=== PATIENT | male | born 1975 | race Caucasian/White ===

== ENCOUNTER → 2024-12-31 08:54 | Outpatient (REF) | payer OTHER, SELFPAY | LOC: HWRAD 08:54 | PROVIDERS: ATTENDING PHYSICIAN Nurse Practitioner Family; FAMILY PHYSICIAN Family Medicine | DX: R10.9 Unspecified abdominal pain (principal) | CPT/HCPCS: 74176 ==

== ENCOUNTER → 2025-02-28 06:37 | Outpatient (REF) | payer OTHER, SELFPAY | LOC: MRI 3T 06:37 | PROVIDERS: ATTENDING PHYSICIAN Physician Assistant Surgical; FAMILY PHYSICIAN Family Medicine | DX: M25.512 Pain in left shoulder (principal); M25.312 Other instability, left shoulder | CPT/HCPCS: 73221 ==

== ENCOUNTER 2025-06-29 00:12 | Emergency (ER) | payer OTHER, SELFPAY ==
[2025-06-29 00:19] VITALS: BP 143/98
--- NOTE | 2025-06-29 03:11 | ED.GENMED ---
History of Present Illness
General
Chief Complaint: Visual Problem
Source: patient
Exam Limitations: none
Time Seen by Provider: 06/29/25 02:42
Nursing documentation reviewed up to this point in time: agreed with
History of Present Illness
History of Present Illness:
Note:
CHIEF COMPLAINT(S)
Visual disturbances involving light sensations in the right eye.
HISTORY OF PRESENT ILLNESS
The patient is a 49-year-old male who presented with new-onset visual disturbances described as 'blowing sort of light' appearing in the peripheral vision of the right eye. These symptoms began around 9 oclock this morning and seem to follow the
curvature of the cornea. The sensation is less prominent currently but raised concern for possible retinal issues. The patient experienced a particularly stressful day, involving physical exertion while assisting his father in caring for his mother,
who has Alzheimers disease, and is 108 pounds. This situation was compounded by family responsibilities, including caring for two children. The patient mentioned stress as a possible trigger for the symptoms. The patient has no known history of
diabetes or eye problems, although there has been a gradual worsening of vision with age.
SOCIAL DETERMINANTS AFFECTING HEALTH
The patient reported significant stress due to family responsibilities, including caregiving for a parent with Alzheimers disease and managing household duties with two children.
PLAN
1. Measure intraocular pressure.
2. Perform an ocular ultrasound to assess for any structural issues, such as a scratch or other abnormalities.
3. Possible referral to an tire and tube repairer based on findings.
DIFFERENTIAL DIAGNOSIS
The Differential Diagnosis includes, in no particular order and is not limited to:
1. Retinal detachment
2. Vitreous detachment
3. Ocular migraine
4. Stress-induced visual disturbances
5. Hypertensive retinopathy
6. Age-related macular degeneration
7. Glaucoma
8. Corneal abrasion
9. Diabetic retinopathy (despite no diabetes history, considered due to visual changes)
10. Optic neuritis
Disposition:
SUMMARY OF ENCOUNTER
The patient, a 49-year-old male, presented to the emergency department with transient flashes of light in his left eye. Upon evaluation, symptoms had resolved. A fluorescein exam was performed, which showed no corneal abrasion. Tonometry readings
for the left eye were 12, 14, and 14. A bedside hdgvv-bl-vddl ultrasound, performed by me, indicated no obvious retinal detachment. The patient has an tire and tube repairer and will follow up accordingly.
PLAN
1. Recommend follow-up with the patients tire and tube repairer to ensure continued monitoring and management of the visual disturbances.
2. Monitor for any recurrence of symptoms or changes in vision that may necessitate further evaluation.
INDEPENDENT REVIEW OF LABS AND INTERPRETATION OF TESTS
- My independent interpretation of the fluorescein exam showed no corneal abrasion.
- My independent interpretation of the mgpnl-nx-bulp ultrasound indicated no obvious retinal detachment.
PATIENT EDUCATION AND COUNSELING
The patient was informed about the findings of the examination, the benign nature of current symptoms, and reassured regarding the absence of corneal abrasion or retinal detachment. He was advised to monitor for any recurrence of symptoms or changes
in vision and follow up with his tire and tube repairer.
MEDICAL DECISION MAKING
- Number and Complexity of Problems Addressed: Chronic conditions affecting care include past visual disturbances and potential eye health issues.
Differential Diagnosis includes:
- Retinal detachment
- Vitreous detachment
- Ocular migraine
- Stress-induced visual disturbances
- Hypertensive retinopathy
- Age-related macular degeneration
- Glaucoma
- Corneal abrasion
- Diabetic retinopathy
- Optic neuritis
- Data:
Category 1: The following tests were independently interpreted: fluorescein exam and shwnp-qj-lyad ultrasound.
- Risk:
Consideration of Admission/Observation: Escalation of care including admission/observation was considered given the complexity and risk of the patients presenting complaint. However, ultimately, the patient is safe for outpatient management with
close follow-up. Reasoning: Work-up was reassuring, did not reveal any acute life/organ-threatening processes, patients symptoms were well-controlled upon reevaluation, reexamination was reassuring, vitals were stable, and the patient is agreeable
with discharge and reliable for follow-up. Care significantly affected by Social Determinants of Health due to family responsibilities and stress.
DIAGNOSIS
1. Ocular migraine (ICD-10: G43.B0)
2. Visual disturbance, unspecified (ICD-10: H53.9)
Phy Exam
Physical Exam
Physical Exam:
.
Course
Orders/Labs/Results
Orders:
Orders
06/29/25 03:08
Fluorescein Sodium [Ful-Hannah] 3 mg .ROUTE .STK-MED ONE
Tetracaine HCl [Tetracaine 0.5% Ophthalmic Solution] 1 drop .ROUTE .STK-MED ONE
Vital Signs
Initial and Last Documented VS:
Initial Vital Signs
Temp Pulse Resp BP Pulse Ox
97.4 F 93 20 143/98 100
06/29/25 00:19 06/29/25 00:19 06/29/25 00:19 06/29/25 00:19 06/29/25 00:19
Last Documented Vital Signs
Temp Pulse Resp BP Pulse Ox
97.4 F 93 20 143/98 100
06/29/25 00:19 06/29/25 00:19 06/29/25 00:19 06/29/25 00:19 06/29/25 03:14
*Radiology
Radiology exam reviewed: other (Rbaye-uh-zaow ultrasound of the left orbit shows no obvious retinal detachment.)
*Pulse Oximetry
SaO2: 100
Oxygen Mode of Delivery: Room air
Patient hypoxic: no
*Critical Care Note
Total Time (30-74mins, 75-104mins- exclusive of procedures): Not Applicable
ED Attending Note
-
Portions of this chart may have been created with voice recognition software.� Occasional wrong word or��sound alike� substitutions may have occurred due to the inherent limitations of voice recognition software.
Discharge Plan
Departure
Patient Disposition: Home (Routine Discharge)
Date of Disposition: 06/29/25
Time of Disposition: 03:12
Patient with high blood pressure during this ER visit?: Yes
Discharge Problem:
Visual disturbance
Instructions: Floaters in the Eye
Referrals:
Jericho England MD [Active, Ophthalmology]
Michael Lopez DO [Family Provider, Family Practice]
Activity Restrictions/Additional Instructions:
Thank You for choosing [facility].
It was a pleasure meeting you and taking part in your care. We hope for your continued healing and wellness.
Please read discharge instructions in their entirety. However, they are for general education and may not describe your exact diagnosis at discharge. Information on your ER visit and medical conditions were discussed with you along with appropriate
follow up information...
If indicated, please take your medications as instructed and indicated on discharge paperwork.
Please schedule a follow up appointment as directed. Call to schedule an appointment
Please return to the emergency department with ANY change in, persisting, or worsening of symptoms. If any of your symptoms do not improve, or persist, or become more severe within 6-12 hours, please return to the emergency department for further
care.
Please return to the emergency department if you develop a headache, neck pain/stiffness, fever greater than 100.4F, chest pain, shortness of breath, persistent nausea, vomiting, slurred speech, difficulty walking, numbness/tingling, weakness, signs
of infection or any other symptoms that are worrisome to you.
If you have any questions or concerns please do not hesitate to call the Hospital at .
Interventions
Interventions:
*Risk Screen - Suicide Last Done: 06/29/25 00:19
*General Assessment Last Done: 06/29/25 00:19
*Neglect/Abuse Screening Last Done: 06/29/25 00:19
*ED- Fall Risk Assessment Last Done: 06/29/25 00:19
*ED COVID-19 Vaccine History Last Done: 06/29/25 00:19
*ED Influenza Vaccine History Last Done: 06/29/25 00:19
*Nursing Disposition Last Done: 06/29/25 03:26
ED- Neurological Assessment Last Done: 06/29/25 03:25
ED-EENT Assessment Last Done: 06/29/25 03:25
ED Swallowing Screen Last Done: 06/29/25 03:25
Discharge Date and Time
Discharge Date/Time: 06/29/25 03:28
Print Language: BELGIAN
== END 2025-06-29 03:28 | disposition home or self-care (01) ==
LOC: EMR 00:12
PROVIDERS: EMERGENCY PHYSICIAN Student in an Organized Health Care Education/Training Program; FAMILY PHYSICIAN Family Medicine
DX: H53.9 Unspecified visual disturbance (principal)
CPT/HCPCS: 99282